=== PATIENT | female | born 1955 | race Caucasian/White ===

== ENCOUNTER 2016-11-11 20:51 | Emergency (ER) | payer OTHER ==
[~2016-11-11] VITALS: Ht 157.5 cm; Wt 73.5 kg
[2016-11-11] MEDS ORDERED: CHOLESTEROL (21:05)
--- NOTE | 2016-11-11 21:42 | NUR ---
Bilateral ear irrigation done per MD
[2016-11-11 21:43] VITALS: BP 130/82
== END 2016-11-11 21:53 | disposition home or self-care (01) ==
LOC: ER 20:52
DX: H61.23 Impacted cerumen, bilateral (principal); E78.5 Hyperlipidemia, unspecified; Z88.6 Allergy status to analgesic agent
CPT/HCPCS: 69209; 99282; A4663

== ENCOUNTER 2016-12-10 20:38 | Emergency (ER) | payer OTHER ==
[~2016-12-10] VITALS: Ht 157.5 cm; Wt 73.5 kg
[~2016-12-10 20:38] MED LIST: CHOLESTEROL
[2016-12-10] MEDS ORDERED: methylPREDNISolone ACETATE 40 MG VIAL IM ONE (22:30)
--- NOTE | 2016-12-10 22:34 | NUR ---
Patient discharged to home in stable conditon. Written and verbal after care instructions given. Patient verbalizes understanding of instructions.
[2016-12-10] MEDS ORDERED: methylPREDNISolone ACETATE 40 MG VIAL ONE (22:36)
== END 2016-12-10 22:35 | disposition home or self-care (01) ==
LOC: ER 20:38
DX: S30.861A Insect bite (nonvenomous) of abdominal wall, initial encounter (principal); E78.5 Hyperlipidemia, unspecified; W57.XXXA Bitten or stung by nonvenomous insect and other nonvenomous arthropods, initial encounter; Y93.89 Activity, other specified; Y92.9 Unspecified place or not applicable; Y99.9 Unspecified external cause status
CPT/HCPCS: A4663; J1030

== ENCOUNTER 2019-03-12 22:47 | Emergency (ER) | payer OTHER ==
[~2019-03-12] VITALS: Ht 157.5 cm; Wt 70.3 kg
--- NOTE | 2019-03-12 22:50 | NUR ---
Dr. Mabry at bedside for MSE
--- NOTE | 2019-03-12 23:00 | NUR ---
Patient A&O x4. Ambulating with steady gait. c/o chest pain x2 wks thats getting worse per patient. patient states burning pain 7/10 on the pain scale that radiates to neck. Breathing even and unlabored. denies any cough or SOB. Speech is clear and able to make needs known / follow commands. Denies any / GI distress. at bedside
[2019-03-12 23:20] LABS: BASOPHILS # (AUTO) 0.1 K/uL (0.0-8.0); BASOPHILS % (AUTO) 1.1 % (0.0-2.0); EOSINOPHILS # (AUTO) 0.2 K/uL (0.0-0.7); HEMATOCRIT 36.7 % (31.2-41.9); HEMOGLOBIN 12.6 g/dL (10.9-14.3); LYMPHOCYTES # (AUTO) 3.5 K/uL (20.0-40.0); LYMPHOCYTES % (AUTO) 36.6 % (20.5-51.5); MEAN CORPUSCULAR HEMOGLOBIN 29.6 uug (24.7-32.8); MEAN CORPUSCULAR HGB CONC 34 g/dL (32.3-35.6); MEAN CORPUSCULAR VOLUME 86.1 fL (75.5-95.3); MONOCYTES # (AUTO) 0.7 K/uL (2.0-10.0); NEUTROPHILS # (AUTO) 5.1 K/uL (1.8-8.9); NEUTROPHILS % (AUTO) 53.3 % (38.5-71.5); PLATELET COUNT (AUTO) 316 K/uL (179-408); RED BLOOD CELL COUNT(AUTO) 4.26 MIL/uL (3.63-4.92); WHITE BLOOD COUNT (AUTO) 9.5 K/uL (3.8-11.8)
[2019-03-12 23:24] LABS: CREATININE 0.9 mg/dL (0.6-1.3); POTASSIUM 3.4 mmol/L (3.5-5.1)
[2019-03-12] MEDS ORDERED: KETOROLAC TROMETHAMINE 15 MG INJ ONE (23:26)
[2019-03-12] MEDS ORDERED: KETOROLAC TROMETHAMINE 15 MG INJ IVP ONE (23:30)
[2019-03-12 23:36] LABS: BILIRUBIN,DIRECT 0.1 mg/dL (0.0-0.2); BILIRUBIN,TOTAL 0.4 mg/dL (0.2-1.0); TOTAL PROTEIN, SERUM 7.5 g/dL (6.4-8.2)
[2019-03-13] MEDS ORDERED: ASPIRIN 325 MG TABLET ONE (00:10)
[2019-03-13] MEDS ORDERED: NITROGLYCERIN 0.4 MG/TAB BOTTLE SL ONE ×2 (00:11→00:15)
[2019-03-13] MEDS ORDERED: ASPIRIN 325 MG TABLET PO ONE (00:15)
[2019-03-13] MEDS ORDERED: SIMV-46 PO (00:15)
--- NOTE | 2019-03-13 00:17 | NUR ---
Pt states chestpain is lessened after 1st dose of nitroglycerin.
[2019-03-13] MEDS ORDERED: HYDROMORPHONE 1 MG/1 ML DISP.SYRIN ONE (00:25)
[2019-03-13] MEDS ORDERED: HYDROMORPHONE 1 MG/1 ML DISP.SYRIN IV ONE (00:30)
--- NOTE | 2019-03-13 01:00 | NUR ---
Spoke with Janee from [facility] to give clinicals.
--- NOTE | 2019-03-13 01:04 | NUR ---
Patient states pain is much better. Patient A&O x4. Breathing even and unlabored. NAD noted
--- NOTE | 2019-03-13 01:11 | NUR ---
Justyna Luis information: [phone]
--- NOTE | 2019-03-13 01:22 | NUR ---
Dr. Mabry speaking with Dr. Mohan from [facility]
--- NOTE | 2019-03-13 01:45 | NUR ---
Patient does not wish to proceed with medical care recommended by Dr. Mabry. Patient given information related to possible complications, up to and including , which could occur as a result of leaving the hospital at this time. Patient verbalizes understanding of risks involved due to leaving against medical advice. Patient has signed AMA form. Patient ambulating with steady gait. IV removed. Catheter intact and site benign. Pressure and 4x4 gauze applied to site. No bleeding noted.
[2019-03-13 01:59] VITALS: BP 115/64
== END 2019-03-13 01:45 | disposition left against medical advice (07) ==
LOC: ER 22:47
DX: R07.2 Precordial pain (principal); E78.5 Hyperlipidemia, unspecified; Z88.5 Allergy status to narcotic agent; Z79.899 Other long term (current) drug therapy
CPT/HCPCS: 36415; 71045; 80048; 80076; 83880; 84484; 85025; 93005; 96374; 96375; 99284; J1170; J1885; 70030-TC; A4663